=== PATIENT | female | born 1930 | race Caucasian/White ===

== ENCOUNTER 2019-08-23 11:56 | Emergency (ER) | payer OTHER ==
[~2019-08-23] VITALS: Ht 152.4 cm; Wt 72.6 kg
[2019-08-23] MEDS ORDERED: VITAMIN E400 UNI2 (12:23)
[2019-08-23] MEDS ORDERED: GLIPIZIDE XL5 MG (12:23)
[2019-08-23] MEDS ORDERED: AMLODIPINE-OLM1 EAC2 (12:24)
[2019-08-23] MEDS ORDERED: CILOSTAZOL50 MG (12:24)
[2019-08-23] MEDS ORDERED: CALTRATE 600 +1 EACH (12:24)
[2019-08-23] MEDS ORDERED: [UNRECOGNIZED DRUG - OTHER] (12:25)
== END 2019-08-23 14:48 | disposition home or self-care (01) ==
LOC: ER 11:56
DX: S70.02XA Contusion of left hip, initial encounter (principal); S00.83XA Contusion of other part of head, initial encounter; W18.39XA Other fall on same level, initial encounter; Y93.89 Activity, other specified; Y92.098 Other place in other non-institutional residence as the place of occurrence of the external cause; Y99.8 Other external cause status